=== PATIENT | female | born 1965 | race Caucasian/White ===

== ENCOUNTER 2017-11-06 08:45 | Emergency (ER) | payer OTHER ==
[~2017-11-06] VITALS: Ht 162.6 cm; Wt 74.5 kg
[~2017-11-06 08:45] MED LIST: ALBUTEROL17 GM IH; ALTERA NEBULIZ1 EACH MC; CIPRO500 MG PO; DOXYCYCLINE HY100 MG PO; FLONASE ALLERG9.9 ML BOTH NARES; LORTAB 5-325 M1 EACH PO; MIRALAX255 GM PO; MOBIC7.5 MG PO; NAPROSYN500 MG PO; NOHOMEMEDS; OMEPRAZOLE20 M2 PO; PYRIDIUM100 MG PO; VIOS AEROSOL D1 EACH MC; ZYRTEC10 M3 PO
[2017-11-06 09:39] LABS: HEMATOCRIT 45.5 % (36.0-46.0); HEMOGLOBIN 15.2 G/DL (11.9-15.5); MCH 31.5 PG (29.0-34.0); MCHC 33.4 G/DL (30.0-36.0); MCV 94.2 FL (83-99); PLATELET COUNT 342 K/uL (156-360); RBC DIS.WIDTH-CV 11.8 % (11.8-14.6); RED BLOOD COUNT 4.83 M/uL (3.80-5.20); WHITE BLOOD COUNT 13.3 K/uL (4.1-10.2)
[2017-11-06 09:47] LABS: CHLORIDE 103 mEq/L (99-109); POTASSIUM 4.3 mEq/L (3.7-5.4); SODIUM 139 mEq/L (136-147)
[2017-11-06 09:49] LABS: GLUCOSE 103 mg/dL (70-99)
[2017-11-06 09:53] LABS: CREATININE 0.7 mg/dL (0.6-1.3); GFR ESTIMATE (CALCULATED) > 59 mL/min/
[2017-11-06 09:54] LABS: UREA NITROGEN (BUN) 8 mg/dL (9-23)
[2017-11-06] MEDS ORDERED: CIPRO500 MG PO (13:06)
[2017-11-06] MEDS ORDERED: FLAGYL500 MG PO (13:06)
[2017-11-06] MEDS ORDERED: NORCO 5/3251 TABLET PO (13:08)
[2017-11-06 14:17] VITALS: BP 139/74
== END 2017-11-06 14:35 | disposition home or self-care (01) ==
LOC: RME 08:45 → EME 08:45 → RME 14:35
DX: K52.9 Noninfective gastroenteritis and colitis, unspecified (principal); J45.909 Unspecified asthma, uncomplicated; F17.200 Nicotine dependence, unspecified, uncomplicated; Z90.710 Acquired absence of both cervix and uterus
CPT/HCPCS: 74177; 80048; 85027; 86850; 86900; 86901; 87493; 87506; 99281; 99284; J2930; J7030